=== PATIENT | female | born 1955 | race Caucasian/White ===

== ENCOUNTER 2019-02-23 11:49 | Inpatient (IN) | payer BC ==
[2019-02-20 10:05] LABS: Basophils # (auto) 0 uL; Basophils % (auto) 0.5 % (0.0-2.0); Eosinophils # (auto) 0.1 uL; Eosinophils % (auto) 1.5 % (0.0-7.0); Hematocrit 42.4 % (36.0-46.0); Hemoglobin 14.3 g/dL (12.2-16.2); Lymphocytes # (auto) 1.8 uL; Lymphocytes % (auto) 35.3 % (10.0-50.0); Mean Corpuscular Hgb Conc. 33.7 g/dL (32.0-36.0); Monocytes # (auto) 0.4 uL; Monocytes % (auto) 8.9 % (0.0-12.0); Neutrophils # (auto) 2.7 uL; Neutrophils % (auto) 53.8 % (37.0-80.0); Nucleated Red Blood Cells % 0.1 %; Platelet Count (auto) 275 10^3/uL (140-450); Red Blood Cells 4.46 10^6/uL (4.0-5.20); Red Cell Distribution Width 13.2 % (11.8-14.3)
[2019-02-20 10:11] LABS: INR 0.99 (0.9-1.15); Partial Thromboplastin Time 25.3 sec (23.64-32.05)
[2019-02-20 10:17] LABS: Urine Bacteria NONE SEEN /hpf (None Seen); Urine Blood 1+ /uL (Negative); Urine Specific Gravity 1.006 (1.001-1.035); Urine WBC 5 /hpf (0 - 5)
[2019-02-20 10:51] LABS: Calcium 8.6 mg/dL (8.5-10.1); Potassium 3.7 mmol/L (3.5-5.1)
[2019-02-20 10:57] LABS: Albumin 3.6 g/dL (3.4-5.0); Bilirubin, Total 0.4 mg/dL (0.2-1.0); Total Protein 7.9 g/dL (6.4-8.2)
[~2019-02-23] VITALS: Ht 167.6 cm; Wt 77.2 kg
[~2019-02-23 11:49] MED LIST: PROG1CAP2 PO; THYR60TA2 PO
[2019-02-23] MEDS ORDERED: ROCURONIUM 10MG/ML 10ML VIAL IV ONE (12:09)
[2019-02-23] MEDS ORDERED: PROPOFOL 10 MG/ML 20 ML IV ONE ×2 (12:09→13:31)
[2019-02-23] MEDS ORDERED: SODIUM CHLORIDE LOCK 40 ML ONE (12:09)
[2019-02-23] MEDS ORDERED: fentaNYL CITRATE 5 ML ONE (12:09)
[2019-02-23] MEDS ORDERED: HYDROmorphone HCL 2 MG/ML VL ONE (12:09)
[2019-02-23] MEDS ORDERED: fentaNYL CITRATE 100 MCG/2 ML VL ONE ×2 (12:09→13:43)
[2019-02-23] MEDS ORDERED: MIDAZOLAM HCL 1MG/1ML-2 ML VIAL ONE ×2 (12:09→13:19)
[2019-02-23] MEDS ORDERED: SUCCINYLCHOLINE CHLORIDE 20 MG/ML 10ML VIAL IV ONE ×2 (12:17→13:14)
[2019-02-23] MEDS ORDERED: BUPIVACAINE 0.25% INJ 50ML VIAL ONE (12:18)
[2019-02-23] MEDS ORDERED: LIDOCAINE W/ EPINEPHRINE 1 % INJ 30ML ONE (12:18)
[2019-02-23] MEDS ORDERED: METHYLENE BLUE 0.5% 5MG/ML 10ml AMP IV ONE (13:02)
[2019-02-23] MEDS ORDERED: LIDOCAINE 1% (LOCAL ANESTH.) PF 5ml SDV ONE (13:13)
[2019-02-23] MEDS ORDERED: ceFAZolin 1GM/50ML 50 ML IV ONE ×2 (13:28→13:45)
[2019-02-23] MEDS ORDERED: METOCLOPRAMIDE HCL 5MG/ml INJ 2ml VIAL ONE (13:31)
[2019-02-23] MEDS: SODIUM CHLORIDE 0.9% 1,000 ML IV SCH ×2 (13:42→21:42)
[2019-02-23] MEDS ORDERED: MORPHINE SULF INJ 2 MG/ML SYRINGE 1ML IV PRN (13:45)
[2019-02-23] MEDS ORDERED: MORPHINE SULFATE 4 MG/ML SYR/VIAL IV PRN (13:45)
[2019-02-23] MEDS ORDERED: ONDANSETRON HCL 4 MG/2 ML VIAL IV PRN ×2 (13:45→14:00)
[2019-02-23] MEDS ORDERED: ACETAMINOPHEN 500 MG TAB PO PRN (13:45)
[2019-02-23] MEDS ORDERED: NITROGLYCERIN 0.4 MG SL TAB SL PRN (13:45)
[2019-02-23] MEDS ORDERED: HYDROmorphone HCL 2 MG/ML VL IV PRN (14:00)
[2019-02-23] MEDS ORDERED: NALOXONE HCL 0.4 MG/ML VIAL IV PRN (14:00)
[2019-02-23] MEDS ORDERED: ePHEDrine SULFATE 50 MG/ML AMP IV PRN (14:00)
[2019-02-23] MEDS ORDERED: ceFAZolin 1GM VL ONE (14:40)
[2019-02-23] MEDS ORDERED: ePHEDrine SULFATE 50 MG/ML AMP ONE (14:46)
[2019-02-23] MEDS ORDERED: MEPERIDINE HCL (25 MG/ML) 1ML VIAL ONE (14:54)
[2019-02-23] MEDS ORDERED: KETOROLAC TROMETH 30 MG/ML 1ML VIAL ONE (15:37)
[2019-02-23] MEDS ORDERED: DexAMETHasone SOD PHOS 10MG/1ML VIAL INJ ONE (15:37)
[2019-02-23] MEDS ORDERED: ONDANSETRON HCL 4 MG/2 ML VIAL ONE (15:37)
[2019-02-23] MEDS: HYDROmorphone HCL 2 MG/ML VL IV PRN ×2 (16:25→18:08)
--- NOTE | 2019-02-23 17:00 | NUR ---
PATIENT ADMITTED FROM OR: PATIENT A/OX4 ON ROOM AIR RESPIRATIONS EVEN AND UNLABORED. VS WNL. PATIENT REPORT PAIN /10. ABDOMINAL BINDER IN PLACE, INCISIONS X5 CDI. SCD'S ON BILATERAL LOWER EXTREMITIES. RADIAL PULSES PRESENT AND PALPABLE. IV'S TO BILATERAL HANDS PATENT AND INTACT. LOREDO HUNG BELOW BLADDER FREE OF KINKS. BOWEL SOUNDS HYPOACTIVE, AND PATIENT DENIES PASSING FLATUS. BEDSIDE COMMODE PRESENT IF PATIENT REQUIRES USE. BED IN LOWEST LOCKED POSITION, CALL LIGHT WITHIN REACH. WILL CONTINUE TO MONITOR.
[2019-02-23 17:38] VITALS: BP 106/48
--- NOTE | 2019-02-23 18:20 | NUR ---
TELE ADMIT PROCESS DELAYED. MD REBOLLAR TO COMPLETE ADMISSION ORDERS, AND MD GARCIA TO BE NOTIFIED FOR ANY PATIENT STATUS UPDATES OR ORDERS REGARDING PATIENT CARE. THIS RN UNABLE TO PULL ANCEF MEDICATION AT THIS TIME DUE TO ADMISSION DELAY, AND PATIENT NOT ACCESSIBLE IN MEDICATION PYXIS.
--- NOTE | 2019-02-23 18:50 | NUR ---
ADMIT TO MED-SURG INCORRECT. PATIENT TELEMETRY ADMIT. WILL INFORM STEAM TUNNEL FEEDER.
--- NOTE | 2019-02-23 19:18 | NUR ---
CARE ENDORSED TO CURRY AKINS.
[2019-02-23 20:00] VITALS: BP 110/50
--- NOTE | 2019-02-23 20:00 | NUR ---
Opening Shift Note Assumed care of patient, awake, AAOx4. No S/S of distress/SOB or pain. On room air and ambulatory. Bed in lowest locked position, side rails up x2, call light within reach. [place] catheter patent and draining to gravity. Instructed on POC and to call for assist PRN, will continue to monitor for changes Q1hr and PRN.
[2019-02-23 22:50] VITALS: BP 110/50
[2019-02-24] MEDS: SODIUM CHLORIDE 0.9% 1,000 ML IV SCH (05:42)
[2019-02-24 05:54] VITALS: BP 99/54
[2019-02-24 06:48] LABS: Basophils # (auto) 0 uL; Basophils % (auto) 0.1 % (0.0-2.0); Eosinophils # (auto) 0 uL; Hematocrit 33.5 % (36.0-46.0); Hemoglobin 11.3 g/dL (12.2-16.2); Lymphocytes # (auto) 1.4 uL; Lymphocytes % (auto) 14.5 % (10.0-50.0); Mean Corpuscular Hgb Conc. 33.7 g/dL (32.0-36.0); Mean Corpuscular Volume 94.7 fL (80.0-100.0); Monocytes # (auto) 0.9 uL; Monocytes % (auto) 9.5 % (0.0-12.0); Neutrophils # (auto) 7.2 uL; Neutrophils % (auto) 75.9 % (37.0-80.0); Platelet Count (auto) 218 10^3/uL (140-450); Red Blood Cells 3.54 10^6/uL (4.0-5.20); White Blood Cell 9.4 10^3/uL (4.4-10.8)
[2019-02-24 08:22] VITALS: BP_SYST 53
--- NOTE | 2019-02-24 09:26 | NUR ---
Left message for Dr. Burch regarding patients request for discharge.
[2019-02-24 13:25] VITALS: BP 116/64
--- NOTE | 2019-02-24 16:28 | NUR ---
Opening Shift Note Assumed care of patient, awake and alert. No S/S of distress/SOB or pain. For safety patients bed is locked, in the lowest position with 2 side rails up and the call light with in reach. Instructed on POC and to call for assist PRN, will continue to monitor for any changes in condition.
== END 2019-02-24 18:07 | disposition home or self-care (01) | DRG 743 ==
LOC: SUR 11:49 → WEST WING 11:50 → TELE-WESTW 19:13
PROVIDERS: ADMIT Obstetrics & Gynecology; ATTEND Obstetrics & Gynecology
PROC: 0UT2FZZ Resection of Bilateral Ovaries, Via Natural or Artificial Opening With Percutaneous Endoscopic Assistance (ICD-10-PCS; 2019-02-23)
PROC: 0UT7FZZ Resection of Bilateral Fallopian Tubes, Via Natural or Artificial Opening With Percutaneous Endoscopic Assistance (ICD-10-PCS; 2019-02-23)
PROC: 0USG4ZZ Reposition Vagina, Percutaneous Endoscopic Approach (ICD-10-PCS; 2019-02-23)
PROC: 8E0W4CZ Robotic Assisted Procedure of Trunk Region, Percutaneous Endoscopic Approach (ICD-10-PCS; 2019-02-23)
PROC: 0UT9FZZ Resection of Uterus, Via Natural or Artificial Opening With Percutaneous Endoscopic Assistance (ICD-10-PCS; principal; 2019-02-23 13:30)
DX: N81.2 Incomplete uterovaginal prolapse (principal); N73.6 Female pelvic peritoneal adhesions (postinfective); N81.89 Other female genital prolapse; Z80.9 Family history of malignant neoplasm, unspecified; Z82.49 Family history of ischemic heart disease and other diseases of the circulatory system
CPT/HCPCS: 36415; 80053; 81001; 85025; 85610; 85730; 86850; 86900; 86901; 87086; G0378; J0330; J0690; J1100; J1885; J2250; J2405; J2704; J3490